=== PATIENT | male | born 1970 | race Two or more races ===

== ENCOUNTER 2020-08-24 07:16 | Outpatient (CLI) | payer BC, OTHER ==
[2020-08-24 09:15] LABS: BILIRUBIN,TOTAL 0.3 mg/dL (0.2-1.0); CREATININE 1.1 mg/dL (0.6-1.3); POTASSIUM 3.9 mmol/L (3.5-5.1); TOTAL PROTEIN, SERUM 7.4 g/dL (6.4-8.2)
[2020-08-24 10:08] LABS: URIC ACID 4.4 mg/dL (3.5-7.2)
== END 2020-08-24 23:59 | disposition home or self-care (01) ==
LOC: LAB 07:16
PROVIDERS: ATTEND Family Medicine
DX: M25.551 Pain in right hip (principal); M25.552 Pain in left hip
CPT/HCPCS: 36415; 72170; 73502; 84550

== ENCOUNTER 2020-12-23 06:38 | Outpatient (CLI) | payer BC, OTHER | END 2020-12-23 23:59 | disposition home or self-care (01) | LOC: LAB 06:38 | PROVIDERS: ATTEND Internal Medicine Gastroenterology | DX: Z01.812 Encounter for preprocedural laboratory examination (principal); Z20.822 Contact with and (suspected) exposure to COVID-19 ==

== ENCOUNTER 2020-12-26 11:03 | Day surgery (SDC) | payer BC, OTHER ==
[2020-12-26] MEDS ORDERED: LIDOCAINE-MPF 2% 5 ML VIAL IJ ONE (11:04)
[2020-12-26] MEDS ORDERED: PROPOFOL 200 MG/20 ML BOTTLE IV ONE (11:04)
[2020-12-26 11:39] LABS: HEMATOCRIT 47.1 % (36.7-47.1); MEAN CORPUSCULAR HEMOGLOBIN 30.4 uug (23.8-33.4); MEAN CORPUSCULAR VOLUME 89.9 fL (73.0-96.2); PLATELET COUNT (AUTO) 254 K/uL (152-348)
[2020-12-26 11:40] LABS: *BILIRUBIN,URIN NEGATIVE (NEGATIVE); *BLOOD, URINE NEGATIVE (NEGATIVE); *CLARITY,URINE CLEAR (CLEAR); *COLOR,URINE YELLOW (YELLOW); *KETONES,URINE NEGATIVE (NEGATIVE); *UROBILINOGEN,URINE 0.2 E.U./dl (NORMAL); LEUKOCYTE ESTERASE ,URINE NEGATIVE (NEGATIVE); NITRITE, URINE NEGATIVE (NEGATIVE); PH,URINE 5.5 (5.0-8.0); UGLUCOSE NEGATIVE (NEGATIVE)
[2020-12-26 11:50] LABS: POTASSIUM 3.7 mmol/L (3.5-5.1)
[2020-12-26 11:55] LABS: BILIRUBIN,TOTAL 0.7 mg/dL (0.2-1.0); TOTAL PROTEIN, SERUM 7.9 g/dL (6.4-8.2)
== END 2020-12-26 15:15 | disposition home or self-care (01) ==
LOC: DS 11:03
PROVIDERS: ATTEND Internal Medicine Gastroenterology
DX: Z12.11 Encounter for screening for malignant neoplasm of colon (principal); K63.5 Polyp of colon; K63.89 Other specified diseases of intestine; K64.0 First degree hemorrhoids; J45.909 Unspecified asthma, uncomplicated; Z79.899 Other long term (current) drug therapy; Z98.890 Other specified postprocedural states
CPT/HCPCS: 36415; 85025; 85730; A4217; A4663; J3490; J7120

== ENCOUNTER 2021-06-06 07:06 | Outpatient (CLI) | payer BC, OTHER ==
[2021-06-06 07:44] LABS: *BILIRUBIN,URIN NEGATIVE (NEGATIVE); *BLOOD, URINE NEGATIVE (NEGATIVE); *CLARITY,URINE CLEAR (CLEAR); *COLOR,URINE YELLOW (YELLOW); *KETONES,URINE NEGATIVE (NEGATIVE); *UROBILINOGEN,URINE 0.2 E.U./dl (NORMAL); HEMATOCRIT 39.5 % (36.7-47.1); LEUKOCYTE ESTERASE ,URINE NEGATIVE (NEGATIVE); MEAN CORPUSCULAR HEMOGLOBIN 30.3 uug (23.8-33.4); MEAN CORPUSCULAR VOLUME 89.1 fL (73.0-96.2); NITRITE, URINE NEGATIVE (NEGATIVE); PH,URINE 6.5 (5.0-8.0); PLATELET COUNT (AUTO) 265 K/uL (152-348); UGLUCOSE NEGATIVE (NEGATIVE)
[2021-06-06 08:42] LABS: BILIRUBIN,TOTAL 0.4 mg/dL (0.2-1.0); POTASSIUM 3.8 mmol/L (3.5-5.1); TOTAL PROTEIN, SERUM 7.3 g/dL (6.4-8.2)
== END 2021-06-06 23:59 | disposition home or self-care (01) ==
LOC: LAB 07:06
PROVIDERS: ATTEND Family Medicine
DX: E78.5 Hyperlipidemia, unspecified (principal); N20.0 Calculus of kidney
CPT/HCPCS: 36415; 76770; 85025; 87086

== ENCOUNTER 2021-08-19 22:43 | Emergency (ER) | payer BC, OTHER ==
[~2021-08-19] VITALS: Ht 175.3 cm; Wt 72.6 kg
--- NOTE | 2021-08-19 22:54 | NUR ---
Cortney MURGUIA AT BEDSIDE, MSE IN PROGRESS.
[2021-08-19] MEDS ORDERED: NEOMY/BACITRA/POLYMYXIN B OINT UD PACKET TP ONE ×2 (22:57→23:00)
[2021-08-19] MEDS ORDERED: CEPH500C2 PO (22:59)
[2021-08-19] MEDS ORDERED: CEphaleXIN 500 MG CAPSULE PO ONE (23:00)
[2021-08-19] MEDS ORDERED: CEphaleXIN 500 MG CAPSULE ONE (23:04)
--- NOTE | 2021-08-19 23:10 | NUR ---
Patient discharged to home in stable condition. Written and verbal after care instructions given. Patient verbalizes understanding of instructions. Stressed follow up or return to ER for worsening s/s. Steady gait, denies any pain/discomfort upon discharge.
[2021-08-19 23:14] VITALS: BP 114/62
== END 2021-08-19 23:16 | disposition home or self-care (01) ==
LOC: ER 22:44
DX: S61.213A Laceration without foreign body of left middle finger without damage to nail, initial encounter (principal); S61.215A Laceration without foreign body of left ring finger without damage to nail, initial encounter; W27.1XXA Contact with garden tool, initial encounter; Y93.H2 Activity, gardening and landscaping; Y92.89 Other specified places as the place of occurrence of the external cause
CPT/HCPCS: A4663